=== PATIENT | male | born 1975 | race Two or more races ===

== ENCOUNTER 2019-06-07 09:26 | Inpatient (IN) | payer MEDICAID | END 2019-06-09 18:30 | disposition home health service (06) | LOC: ER 09:26 → TELE 09:27 → TELE-WESTW 18:31 | DX: A41.9 Sepsis, unspecified organism (principal); E11.621 Type 2 diabetes mellitus with foot ulcer; E44.0 Moderate protein-calorie malnutrition; E11.65 Type 2 diabetes mellitus with hyperglycemia; E87.8 Other disorders of electrolyte and fluid balance, not elsewhere classified; Z79.84 Long term (current) use of oral hypoglycemic drugs; D64.9 Anemia, unspecified ==

== ENCOUNTER 2020-05-01 21:01 | Emergency (ER) | payer MEDICAID ==
[~2020-05-01] VITALS: Ht 175.3 cm; Wt 120.2 kg
[~2020-05-01 21:01] MED LIST: METF-490 PO
[2020-05-01] MEDS ORDERED: InsuLIN REG 1unit/0.01ml Soln (100units/ml) IV ONE (21:45)
[2020-05-01] MEDS ORDERED: SODIUM CHLORIDE 0.9% 2,000 ML IV ONE (21:45)
[2020-05-01] MEDS ORDERED: SODIUM CHLORIDE 0.9% 1,000 ML IV ONE (22:00)
[2020-05-01 22:15] LABS: Basophils # (auto) 0 10 ^3/uL (0-0.2); Basophils % (auto) 0.6 % (0.0-2.0); Eosinophils # (auto) 0.2 10 ^3/uL (0-0.8); Eosinophils % (auto) 2.2 % (0.0-7.0); Hematocrit 40.8 % (41.0-53.0); Hemoglobin 13.5 g/dL (13.5-17.5); Lymphocytes # (auto) 1.6 10 ^3/uL (0.4-5.4); Lymphocytes % (auto) 21.2 % (10.0-50.0); Mean Corpuscular Hemoglobin 30.6 pg (28.0-32.0); Mean Corpuscular Volume 92.7 fL (80.0-100.0); Monocytes # (auto) 0.6 10 ^3/uL (0-1.3); Monocytes % (auto) 8.1 % (0.0-12.0); Neutrophils # (auto) 5.2 10 ^3/uL (1.6-8.6); Neutrophils % (auto) 67.9 % (37.0-80.0); Platelet Count (auto) 320 10^3/uL (140-450); Red Blood Cells 4.41 10^6/uL (4.5-5.90); Red Cell Distribution Width 14.7 % (11.8-14.3); White Blood Cell 7.7 10^3/uL (4.4-10.8)
[2020-05-01 22:36] LABS: Alanine Aminotransferase 26 U/L (16-61); Albumin 3.4 g/dL (3.4-5.0); Anion Gap 7 (5-15); Aspartate Aminotransferase 15 U/L (15-37); BUN/Creatinine Ratio 10.1; Blood Urea Nitrogen 22 mg/dL (7-18); Carbon Dioxide 29 mmol/L (21-32); Chloride 98 mmol/L (98-107); GFR African American 42 mL/min; GFR Non-African American 35 mL/min; Glucose 333 mg/dL (74-106); Magnesium 2.6 mg/dL (1.6-2.6); Sodium 134 mmol/L (136-145)
[2020-05-01 22:41] LABS: Alkaline Phosphatase 83 U/L (45-117); Bilirubin, Total 0.3 mg/dL (0.2-1.0); Total Protein 7.4 g/dL (6.4-8.2)
[2020-05-02] VITALS: BP 100/66
== END 2020-05-02 00:15 | disposition home or self-care (01) ==
LOC: ER 21:01
DX: E11.65 Type 2 diabetes mellitus with hyperglycemia (principal); I10 Essential (primary) hypertension; E78.5 Hyperlipidemia, unspecified
CPT/HCPCS: 36415; 36600; 70450; 71045; 80053; 82010; 82805; 82962; 83735; 84484; 85025; 93005; 96361; 96374; 99285; J1815; J7030

== ENCOUNTER 2020-08-18 09:59 | Emergency (ER) | payer MEDICAID ==
[~2020-08-18] VITALS: Ht 175.3 cm; Wt 116.1 kg
[2020-08-18] MEDS ORDERED: SODIUM CHLORIDE 0.9% 1,000 ML IV ONE (10:45)
[2020-08-18] MEDS ORDERED: ONDANSETRON HCL 4 MG/2 ML VIAL IV ONE (10:45)
[2020-08-18 10:59] LABS: Basophils # (auto) 0.1 10 ^3/uL (0-0.2); Eosinophils # (auto) 0.2 10 ^3/uL (0-0.8); Eosinophils % (auto) 3.6 % (0.0-7.0); Hematocrit 41.3 % (41.0-53.0); Hemoglobin 13.9 g/dL (13.5-17.5); Lymphocytes # (auto) 1.8 10 ^3/uL (0.4-5.4); Mean Corpuscular Hemoglobin 30.8 pg (28.0-32.0); Mean Corpuscular Hgb Conc. 33.7 g/dL (32.0-36.0); Mean Corpuscular Volume 91.4 fL (80.0-100.0); Monocytes # (auto) 0.4 10 ^3/uL (0-1.3); Monocytes % (auto) 6.4 % (0.0-12.0); Platelet Count (auto) 259 10^3/uL (140-450); Red Blood Cells 4.52 10^6/uL (4.5-5.90); Red Cell Distribution Width 14.8 % (11.8-14.3); White Blood Cell 6.6 10^3/uL (4.4-10.8)
[2020-08-18 11:16] LABS: Albumin 3.8 g/dL (3.4-5.0); Calcium 9.7 mg/dL (8.5-10.1); Potassium 4.4 mmol/L (3.5-5.1)
[2020-08-18 11:18] LABS: BUN/Creatinine Ratio 15.6; Bilirubin, Total 0.3 mg/dL (0.2-1.0); Total Protein 7.6 g/dL (6.4-8.2)
[2020-08-18 14:10] VITALS: BP 118/82
[2020-08-18 14:22] LABS: Urine Bacteria NONE SEEN /hpf (None Seen); Urine Blood Negative /uL (Negative); Urine Hyaline Cast FEW /lpf (0 - 2); Urine Mucus FEW (None Seen); Urine Specific Gravity 1.024 (1.001-1.035); Urine WBC <1 /hpf (0 - 3)
== END 2020-08-18 15:15 | disposition home or self-care (01) ==
LOC: ER 09:59
DX: E11.65 Type 2 diabetes mellitus with hyperglycemia (principal); R10.30 Lower abdominal pain, unspecified; R06.02 Shortness of breath; R11.0 Nausea; I10 Essential (primary) hypertension; Z87.891 Personal history of nicotine dependence
CPT/HCPCS: 36415; 80053; 81001; 82962; 85025; 96361; 96374; 99283; J2405; J7030

== ENCOUNTER 2021-06-22 13:04 | Emergency (ER) | payer MEDICAID ==
[~2021-06-22] VITALS: Ht 175.3 cm; Wt 113.4 kg
[~2021-06-22 13:04] MED LIST changes: +ASPI-231 PO; +CHOL20007 OR; +CLIN300C8 PO; +CLOT1CRE56 TOP; +CYAN1TAB14 PO; +FLUO-126 PO; +GABA400C PO; +INSU1INJ19 SC; +LEVO500T31 PO; +METF-371 PO; -METF-490 PO; +PROBTAB12 OR; +QUET200T44 PO; +TRAZ-184 PO
[2021-06-22 14:00] VITALS: BP 104/75
== END 2021-06-22 14:10 | disposition home or self-care (01) ==
LOC: ER 13:04
DX: G89.29 Other chronic pain (principal); M54.9 Dorsalgia, unspecified; E11.9 Type 2 diabetes mellitus without complications; E78.5 Hyperlipidemia, unspecified; I10 Essential (primary) hypertension; Z87.891 Personal history of nicotine dependence; Z76.0 Encounter for issue of repeat prescription

== ENCOUNTER 2023-04-01 14:24 | Emergency (ER) | payer MEDICAID ==
[~2023-04-01] VITALS: Ht 175.3 cm; Wt 98.2 kg
[~2023-04-01 14:24] MED LIST changes: -ASPI-231 PO; +ASPI1TAB20 PO; -QUET200T44 PO; +QUET200T45 PO
[2023-04-01 16:01] LABS: Basophils # (auto) 0 10 ^3/uL (0-0.2); Basophils % (auto) 0.5 % (0.0-2.0); Eosinophils # (auto) 0.2 10 ^3/uL (0-0.8); Eosinophils % (auto) 2.5 % (0.0-7.0); Hematocrit 45.3 % (41.0-53.0); Lymphocytes % (auto) 24.3 % (10.0-50.0); Mean Corpuscular Hemoglobin 30.5 pg (28.0-32.0); Mean Corpuscular Hgb Conc. 33.1 g/dL (32.0-36.0); Mean Corpuscular Volume 92.2 fL (80.0-100.0); Monocytes # (auto) 0.5 10 ^3/uL (0-1.3); Monocytes % (auto) 5.9 % (0.0-12.0); Neutrophils # (auto) 5.5 10 ^3/uL (1.6-8.6); Neutrophils % (auto) 66.8 % (37.0-80.0); Nucleated Red Blood Cells % 0.1 %; Red Blood Cells 4.91 10^6/uL (4.5-5.90); Red Cell Distribution Width 14.5 % (11.8-14.3); White Blood Cell 8.3 10^3/uL (4.4-10.8)
[2023-04-01 16:13] LABS: Albumin 3.6 g/dL (3.4-5.0); BUN/Creatinine Ratio 14.7 (10.0-20.0); Calcium 8.8 mg/dL (8.5-10.1); Magnesium 2.6 mg/dL (1.6-2.6)
[2023-04-01 16:23] LABS: Bilirubin, Total 0.4 mg/dL (0.2-1.0); Total Protein 6.8 g/dL (6.4-8.2)
[2023-04-01 16:55] LABS: Urine WBC None Seen /hpf (0 - 3)
[2023-04-01 17:23] LABS: Alcohol, Urine < 3.0 mg/dL (0-10); Barbiturate Scree,Urine NEGATIVE (NEGATIVE); Benzodiazephine Screen, Urine NEGATIVE (NEGATIVE); Cannabinoid Screen, Urine NEGATIVE (NEGATIVE); Cocaine Screen, Urine NEGATIVE (NEGATIVE)
[2023-04-01 17:30] LABS: Urine Bacteria NONE SEEN /hpf (None Seen); Urine Blood Negative /uL (Negative); Urine Specific Gravity 1.012 (1.001-1.035); Urine Sperm PRESENT /hpf (None Seen)
[2023-04-01] MEDS ORDERED: KETOROLAC TROMETH 30 MG/ML 1ML VIAL IM ONE (17:30)
[2023-04-01] MEDS ORDERED: PROMETHAZINE HCL 25 MG/ML 1ML IM ONE (17:30)
[2023-04-01 17:31] LABS: Amphetamine Screen, Urine POSITIVE (NEGATIVE); Opiate Scree,Urine NEGATIVE (NEGATIVE); Phencyclidine Screen, Urine NEGATIVE (NEGATIVE)
[2023-04-01 18:49] VITALS: BP 107/78
== END 2023-04-01 22:32 | disposition home or self-care (01) ==
LOC: ER 14:24
DX: R51.9 Headache, unspecified (principal); H53.8 Other visual disturbances; H54.61 Unqualified visual loss, right eye, normal vision left eye; E11.9 Type 2 diabetes mellitus without complications; E78.5 Hyperlipidemia, unspecified; I10 Essential (primary) hypertension; Z87.891 Personal history of nicotine dependence
CPT/HCPCS: 36415; 70450; 80053; 80307; 81001; 83735; 84484; 85025; 93005; 96372; 99285; J1885; J2550

== ENCOUNTER 2023-04-06 00:28 | Emergency (ER) | payer MEDICAID ==
[~2023-04-06] VITALS: Ht 175.3 cm; Wt 95.0 kg
[2023-04-06] MEDS ORDERED: METOCLOPRAMIDE HCL 5MG/ml INJ 2ml VIAL IV ONE (07:15)
[2023-04-06] MEDS ORDERED: DexAMETHasone SOD PHOS 10MG/1ML VIAL INJ IV ONE (07:15)
[2023-04-06] MEDS ORDERED: LACTATED RINGER'S 1,000 ML IV ONE (07:15)
[2023-04-06] MEDS ORDERED: diphenhdrAMINE HCL 50 MG/1 ML VL IV ONE (07:15)
[2023-04-06] MEDS ORDERED: HALOPERIDOL LACTATE 5 MG/ML INJ VIAL IV ONE (07:15)
[2023-04-06] MEDS ORDERED: KETOROLAC TROMETH 30 MG/ML 1ML VIAL IV ONE (07:15)
[2023-04-06] MEDS ORDERED: HYDROcodone-ACET 5/325MG TAB PO ONE (07:15)
[2023-04-06] MEDS ORDERED: MAGNESIUM SULFATE 1GM/100ML 100 ML IV ONE (07:15)
[2023-04-06 07:31] LABS: Basophils # (auto) 0.1 10 ^3/uL (0-0.2); Basophils % (auto) 0.8 % (0.0-2.0); Eosinophils # (auto) 0.2 10 ^3/uL (0-0.8); Eosinophils % (auto) 2.8 % (0.0-7.0); Hematocrit 44.3 % (41.0-53.0); Hemoglobin 14.8 g/dL (13.5-17.5); Lymphocytes # (auto) 1.8 10 ^3/uL (0.4-5.4); Lymphocytes % (auto) 21.8 % (10.0-50.0); Mean Corpuscular Hemoglobin 30.5 pg (28.0-32.0); Mean Corpuscular Hgb Conc. 33.3 g/dL (32.0-36.0); Mean Corpuscular Volume 91.6 fL (80.0-100.0); Monocytes # (auto) 0.3 10 ^3/uL (0-1.3); Monocytes % (auto) 4.2 % (0.0-12.0); Neutrophils # (auto) 5.7 10 ^3/uL (1.6-8.6); Neutrophils % (auto) 70.4 % (37.0-80.0); Nucleated Red Blood Cells % 0.1 %; Red Blood Cells 4.84 10^6/uL (4.5-5.90); Red Cell Distribution Width 14.3 % (11.8-14.3); White Blood Cell 8.2 10^3/uL (4.4-10.8)
[2023-04-06 08:08] LABS: Calcium 9.7 mg/dL (8.5-10.1); Potassium 4.2 mmol/L (3.5-5.1)
[2023-04-06 08:15] LABS: Albumin 3.8 g/dL (3.4-5.0); BUN/Creatinine Ratio 13.8 (10.0-20.0); Bilirubin, Total 0.6 mg/dL (0.2-1.0); Total Protein 7.2 g/dL (6.4-8.2)
[2023-04-06 10:00] VITALS: BP 143/102
== END 2023-04-06 10:22 | disposition home or self-care (01) ==
LOC: ER 00:28
DX: R51.9 Headache, unspecified (principal); E11.9 Type 2 diabetes mellitus without complications; E78.5 Hyperlipidemia, unspecified; I10 Essential (primary) hypertension; F17.210 Nicotine dependence, cigarettes, uncomplicated
CPT/HCPCS: 36415; 80053; 85025; 96365; 96375; 99285; J1100; J1200; J1630; J1885; J2765; J3475

== ENCOUNTER 2023-04-09 10:00 | Inpatient (IN) | payer MEDICAID ==
[~2023-04-09] VITALS: Ht 175.3 cm; Wt 108.1 kg
[2023-04-09] MEDS ORDERED: cloNIDine HCL 0.1 MG TAB PO ONE (10:15)
[2023-04-09 11:55] LABS: Basophils # (auto) 0.1 10 ^3/uL (0-0.2); Basophils % (auto) 0.8 % (0.0-2.0); Eosinophils # (auto) 0.2 10 ^3/uL (0-0.8); Eosinophils % (auto) 2.2 % (0.0-7.0); Hematocrit 46.9 % (41.0-53.0); Hemoglobin 15.5 g/dL (13.5-17.5); Lymphocytes # (auto) 1.7 10 ^3/uL (0.4-5.4); Lymphocytes % (auto) 20.5 % (10.0-50.0); Mean Corpuscular Hemoglobin 30.5 pg (28.0-32.0); Mean Corpuscular Volume 92.3 fL (80.0-100.0); Monocytes # (auto) 0.4 10 ^3/uL (0-1.3); Monocytes % (auto) 5.1 % (0.0-12.0); Neutrophils # (auto) 5.9 10 ^3/uL (1.6-8.6); Neutrophils % (auto) 71.4 % (37.0-80.0); Nucleated Red Blood Cells % 0.1 %; Red Blood Cells 5.08 10^6/uL (4.5-5.90); Red Cell Distribution Width 14.5 % (11.8-14.3); White Blood Cell 8.2 10^3/uL (4.4-10.8)
[2023-04-09] MEDS ORDERED: PROMETHAZINE HCL 25 MG/ML 1ML IV ONE (12:30)
[2023-04-09] MEDS ORDERED: KETOROLAC TROMETH 30 MG/ML 1ML VIAL IV ONE (12:30)
[2023-04-09 12:50] LABS: Albumin 3.8 g/dL (3.4-5.0); Calcium 9.7 mg/dL (8.5-10.1); Potassium 4.4 mmol/L (3.5-5.1)
[2023-04-09 12:54] LABS: BUN/Creatinine Ratio 15.1 (10.0-20.0); Bilirubin, Total 0.4 mg/dL (0.2-1.0); Total Protein 6.8 g/dL (6.4-8.2)
[2023-04-09] MEDS ORDERED: NITROGLYCERIN 0.4 MG SL TAB SL PRN (17:15)
[2023-04-09] MEDS ORDERED: MORPHINE SULFATE INJ 2 MG/ml SYRG IV PRN ×2 (17:15)
[2023-04-09] MEDS ORDERED: DEXTROSE (50%) 50ML SYRG IV PRN (17:30)
[2023-04-09] MEDS ORDERED: hydrALAZINE HCL 20 MG/ML VL IV PRN (17:45)
[2023-04-10] MEDS: InsuLIN REG 1unit/0.01ml Soln (100units/ml) SC SCH ×4 (00:17→22:37)
[2023-04-10] MEDS: ACCU-CHEK COMFORT CURVE STRIP VI SCH ×5 (00:17→22:04)
[2023-04-10] MEDS: traZODone HCL 50 MG TAB PO SCH ×2 (00:18→22:39)
[2023-04-10] MEDS: GABAPENTIN 400 MG CAP PO SCH ×3 (00:19→22:39)
[2023-04-10 04:14] LABS: Basophils # (auto) 0 10 ^3/uL (0-0.2); Basophils % (auto) 0.4 % (0.0-2.0); Eosinophils # (auto) 0.2 10 ^3/uL (0-0.8); Eosinophils % (auto) 1.8 % (0.0-7.0); Hematocrit 45.9 % (41.0-53.0); Hemoglobin 15.7 g/dL (13.5-17.5); Lymphocytes % (auto) 28.8 % (10.0-50.0); Mean Corpuscular Hemoglobin 31.9 pg (28.0-32.0); Mean Corpuscular Hgb Conc. 34.3 g/dL (32.0-36.0); Mean Corpuscular Volume 92.9 fL (80.0-100.0); Monocytes # (auto) 0.6 10 ^3/uL (0-1.3); Monocytes % (auto) 5.3 % (0.0-12.0); Neutrophils # (auto) 6.6 10 ^3/uL (1.6-8.6); Neutrophils % (auto) 63.7 % (37.0-80.0); Nucleated Red Blood Cells % 0.1 %; Red Blood Cells 4.94 10^6/uL (4.5-5.90); Red Cell Distribution Width 15.1 % (11.8-14.3); White Blood Cell 10.3 10^3/uL (4.4-10.8)
[2023-04-10 04:26] LABS: Albumin 3.6 g/dL (3.4-5.0); Calcium 9.6 mg/dL (8.5-10.1); Potassium 4.4 mmol/L (3.5-5.1)
[2023-04-10 04:33] LABS: BUN/Creatinine Ratio 17.6 (10.0-20.0); Bilirubin, Total 0.3 mg/dL (0.2-1.0); Total Protein 7.2 g/dL (6.4-8.2)
[2023-04-10] MEDS: SODIUM CHLORIDE 0.9% 1,000 ML IV SCH ×4 (05:00→23:44)
[2023-04-10] MEDS: QUETIAPINE FUMERATE 200 MG PO SCH ×2 (05:59→06:00)
[2023-04-10] MEDS: INSULIN LANTUS (GLARGINE) 1 /0.01ml (100units/ml) SC SCH ×2 (06:46→22:38)
[2023-04-10] MEDS: HYDROcodone-ACET 5/325MG TAB PO PRN ×2 (08:53→11:25)
[2023-04-10] MEDS ORDERED: LORazepam 2MG/ML-1ML VIAL IV PRN (11:00)
[2023-04-10] MEDS: FLUoxetine HCL 10 MG CAP PO SCH (11:18)
[2023-04-10] MEDS: ASPirin-EC 81 mg tab PO SCH (11:19)
[2023-04-10] MEDS ORDERED: DEXTROSE (50%) 50ML SYRG IV PRN (15:00)
[2023-04-10] MEDS ORDERED: KETOROLAC TROMETH 30 MG/ML 1ML VIAL IV ONE (15:00)
[2023-04-10] MEDS ORDERED: InsuLIN REG 1unit/0.01ml Soln (100units/ml) SC ONE (15:30)
[2023-04-10 15:52] LABS: Urine Bacteria NONE SEEN /hpf (None Seen); Urine Blood Negative /uL (Negative); Urine Specific Gravity 1.031 (1.001-1.035); Urine WBC 1 /hpf (0 - 3)
[2023-04-10 16:09] LABS: Alcohol, Urine < 3.0 mg/dL (0-10); Amphetamine Screen, Urine POSITIVE (NEGATIVE); Barbiturate Scree,Urine NEGATIVE (NEGATIVE); Benzodiazephine Screen, Urine NEGATIVE (NEGATIVE); Cannabinoid Screen, Urine NEGATIVE (NEGATIVE); Cocaine Screen, Urine NEGATIVE (NEGATIVE); Phencyclidine Screen, Urine NEGATIVE (NEGATIVE)
[2023-04-10 16:16] LABS: Opiate Scree,Urine NEGATIVE (NEGATIVE)
[2023-04-10] MEDS: QUEtiapine FUMARATE 25 MG TAB PO SCH (22:39)
[2023-04-10] MEDS: TIMOLOL MAL 0.5% OPTH(EYE) SOL 5ML RIGHTEYE SCH (22:39)
[2023-04-10] MEDS ORDERED: NITROGLYCERIN 0.4 MG SL TAB SL PRN (23:15)
[2023-04-10] MEDS ORDERED: MORPHINE SULFATE INJ 2 MG/ml SYRG IV PRN (23:15)
[2023-04-11] MEDS ORDERED: NOREPINEPHRINE 8 MG/250ML KIT 250 ML IV SCH (06:45)
[2023-04-11] MEDS: ACCU-CHEK COMFORT CURVE STRIP VI SCH ×4 (06:57→23:03)
[2023-04-11] MEDS: INSULIN LANTUS (GLARGINE) 1 /0.01ml (100units/ml) SC SCH ×2 (07:02→23:04)
[2023-04-11] MEDS: InsuLIN REG 1unit/0.01ml Soln (100units/ml) SC SCH ×4 (07:03→23:04)
[2023-04-11] MEDS ORDERED: LACTATED RINGER'S 1,000 ML IV ONE (08:15)
[2023-04-11 08:52] LABS: Basophils # (auto) 0.1 10 ^3/uL (0-0.2); Basophils % (auto) 0.6 % (0.0-2.0); Eosinophils # (auto) 0.3 10 ^3/uL (0-0.8); Eosinophils % (auto) 3.7 % (0.0-7.0); Hematocrit 42.8 % (41.0-53.0); Hemoglobin 14.3 g/dL (13.5-17.5); Lymphocytes # (auto) 2.5 10 ^3/uL (0.4-5.4); Lymphocytes % (auto) 29.6 % (10.0-50.0); Mean Corpuscular Hemoglobin 31.2 pg (28.0-32.0); Mean Corpuscular Hgb Conc. 33.4 g/dL (32.0-36.0); Mean Corpuscular Volume 93.6 fL (80.0-100.0); Monocytes # (auto) 0.4 10 ^3/uL (0-1.3); Monocytes % (auto) 5.2 % (0.0-12.0); Neutrophils # (auto) 5.2 10 ^3/uL (1.6-8.6); Neutrophils % (auto) 60.9 % (37.0-80.0); Nucleated Red Blood Cells % 0.1 %; Red Blood Cells 4.58 10^6/uL (4.5-5.90); White Blood Cell 8.5 10^3/uL (4.4-10.8)
[2023-04-11] MEDS: HYDROcodone-ACET 5/325MG TAB PO PRN ×2 (09:05→23:34)
[2023-04-11] MEDS: SODIUM CHLORIDE 0.9% 1,000 ML IV SCH ×3 (09:15→23:00)
[2023-04-11 09:21] LABS: Calcium 8.2 mg/dL (8.5-10.1); Potassium 4.1 mmol/L (3.5-5.1)
[2023-04-11] MEDS: GABAPENTIN 400 MG CAP PO SCH ×2 (10:33→23:05)
[2023-04-11] MEDS: FLUoxetine HCL 10 MG CAP PO SCH (10:33)
[2023-04-11] MEDS: ASPirin-EC 81 mg tab PO SCH (10:33)
[2023-04-11] MEDS: TIMOLOL MAL 0.5% OPTH(EYE) SOL 5ML RIGHTEYE SCH ×2 (10:33→23:07)
[2023-04-11] MEDS ORDERED: traZODone HCL 50 MG TAB PO SCH (22:00)
[2023-04-11 22:22] VITALS: BP 125/76
[2023-04-11] MEDS: QUEtiapine FUMARATE 25 MG TAB PO SCH (23:05)
[2023-04-11 23:18] VITALS: BP 125/76
[2023-04-12] MEDS ORDERED: KETOROLAC TROMETH 30 MG/ML 1ML VIAL IV ONE ×3 (01:00→11:00)
[2023-04-12 04:44] VITALS: BP 91/64
[2023-04-12] MEDS: ACCU-CHEK COMFORT CURVE STRIP VI SCH ×2 (06:36→11:12)
[2023-04-12] MEDS: INSULIN LANTUS (GLARGINE) 1 /0.01ml (100units/ml) SC SCH (06:37)
[2023-04-12] MEDS: InsuLIN REG 1unit/0.01ml Soln (100units/ml) SC SCH ×2 (06:40→11:29)
[2023-04-12 09:00] VITALS: BP 134/90
[2023-04-12] MEDS: GABAPENTIN 400 MG CAP PO SCH (09:49)
[2023-04-12] MEDS: FLUoxetine HCL 10 MG CAP PO SCH (09:49)
[2023-04-12] MEDS: ASPirin-EC 81 mg tab PO SCH (09:49)
[2023-04-12] MEDS: SODIUM CHLORIDE 0.9% 1,000 ML IV SCH (09:52)
[2023-04-12] MEDS ORDERED: INSULIN LANTUS (GLARGINE) 1 /0.01ml (100units/ml) SC SCH (11:00)
[2023-04-12] MEDS ORDERED: SUMAtriptan SUCCINATE 25 MG TAB PO ONE (11:00)
[2023-04-12] MEDS: TIMOLOL MAL 0.5% OPTH(EYE) SOL 5ML RIGHTEYE SCH (11:11)
[2023-04-12 13:00] VITALS: BP 133/82
[2023-04-12] MEDS ORDERED: KETO10TA PO (16:01)
[2023-04-12] MEDS ORDERED: SUMA50TA2 PO (16:01)
[2023-04-12] MEDS ORDERED: FLUO-126 PO (16:10)
[2023-04-12] MEDS ORDERED: METF-371 PO (16:10)
[2023-04-12] MEDS ORDERED: INSU1INJ19 SC (16:10)
[2023-04-12 17:08] VITALS: BP 127/80
== END 2023-04-12 19:17 | disposition home or self-care (01) | DRG 54 ==
LOC: ER 10:00 → OVERFLOW 17:23 → TELE-CENTR 04-11 22:10
PROVIDERS: ADMIT Nurse Practitioner Family; ATTEND Nurse Practitioner Acute Care
DX: G43.909 Migraine, unspecified, not intractable, without status migrainosus (principal); R57.1 Hypovolemic shock; E66.9 Obesity, unspecified; I10 Essential (primary) hypertension; E78.5 Hyperlipidemia, unspecified; E11.9 Type 2 diabetes mellitus without complications; F15.10 Other stimulant abuse, uncomplicated; F17.210 Nicotine dependence, cigarettes, uncomplicated; H54.61 Unqualified visual loss, right eye, normal vision left eye; Z82.49 Family history of ischemic heart disease and other diseases of the circulatory system; Z83.3 Family history of diabetes mellitus; Z91.199 Patient's noncompliance with other medical treatment and regimen due to unspecified reason; Z68.35 Body mass index [BMI] 35.0-35.9, adult
CPT/HCPCS: 36415; 70450; 70540; 70551; 80048; 80053; 80061; 80307; 81001; 82140; 82962; 83036; 83605; 83880; 84484; 85025; 93306; 96374; 96375; G0378; J1815; J1885

== ENCOUNTER 2023-07-07 08:05 | Emergency (ER) | payer MEDICAID ==
[~2023-07-07] VITALS: Ht 175.3 cm; Wt 93.8 kg
[~2023-07-07 08:05] MED LIST changes: +CLIN300C70 PO; -CLIN300C8 PO; +KETO10TA PO; +SUMA50TA2 PO
[2023-07-07 08:19] VITALS: BP 113/69; PULSE 96; RESP 16; TEMP 98; O2SAT 98
[2023-07-07] MEDS ORDERED: AMPICILLIN & SULBACTAM SODIUM 3 GM in SODIUM CHL 0.9% 100 ML IV STA (10:44)
[2023-07-07] MEDS ORDERED: TETANUS-DIPTH-ACEL PERTUSSIS 0.5ML SYR Tdap IM ONE (10:45)
[2023-07-07] MEDS ORDERED: BACDST PO (12:37)
== END 2023-07-07 13:46 | disposition home or self-care (01) ==
LOC: ER 08:05
DX: S91.302A Unspecified open wound, left foot, initial encounter (principal); E11.65 Type 2 diabetes mellitus with hyperglycemia; G62.9 Polyneuropathy, unspecified; I10 Essential (primary) hypertension; E11.9 Type 2 diabetes mellitus without complications; E78.5 Hyperlipidemia, unspecified; F17.210 Nicotine dependence, cigarettes, uncomplicated; Z79.4 Long term (current) use of insulin; Z79.82 Long term (current) use of aspirin; Z79.2 Long term (current) use of antibiotics; Z79.899 Other long term (current) drug therapy; W22.8XXA Striking against or struck by other objects, initial encounter; Y93.89 Activity, other specified; Y92.89 Other specified places as the place of occurrence of the external cause; Y99.8 Other external cause status
CPT/HCPCS: 73630; 82962; 90471; 90715; 96365; 96366